=== PATIENT | male | born 2005 | race Hispanic/Latino ===

== ENCOUNTER 2025-03-06 06:51 | Outpatient (CLI) | payer OTHER, SELFPAY ==
--- NOTE | ~2025-03-06 | CT_ITS ---
EXAM/PROCEDURE: CT sinus wo con HISTORY: J32.9 - Chronic sinusitis, unspecified COMPARISON: None available. TECHNIQUE: Paranasal sinus CT FINDINGS: Masslike expansile soft tissue opacification in the left ethmoid air cells and sphenoid sinus extending posteriorly into the nasopharyngeal region where masslike dimensions measure 3.8 x 3.6 x 2.9 cm. See image 94 series 601 and image 264 series 2. The left maxillary sinus is atretic. Mild to moderate mucoperiosteal thickening in the left maxillary sinus. The right maxillary sinus, frontal sinuses and right sphenoid sinuses are fully aerated. Minimal opacification the ethmoid air cells. Both ostiomeatal complexes are patent. IMPRESSION: A 3.8 x 3.6 x 2.9 cm suspected mass in the left nasal cavity extending posteriorly into the nasopharynx. Expansile changes suggest low-grade malignancy or benign mass. Consultation with ENT service recommended if not already obtained. Reviewed, dictated and finalized at location A. NESS TRANSFORMATION ANALYST IMPRESSION: A 3.8 x 3.6 x 2.9 cm suspected mass in the left nasal cavity extending posterio rly into the nasopharynx. Expansile changes suggest low-grade malignancy or shad ign mass. Consultation with ENT service recommended if not already obtained.
== END 2025-03-06 06:52 | disposition home or self-care (01) ==
PROVIDERS: Visit Provider Otolaryngology
DX: J32.9 Chronic sinusitis, unspecified (principal)
CPT/HCPCS: 70486